=== PATIENT | male | born 1935 | race Caucasian/White ===

== ENCOUNTER 2016-11-18 22:55 | Emergency (ER) | payer MEDICARE, OTHER ==
[2016-11-18] MEDS ORDERED: Aspirin Low Dose CHEW TAB* 81 MG PO ONE (23:34)
[2016-11-18] MEDS ORDERED: NS 0.9% 1000 ML* 1,000 ML IV ONE (23:34)
[2016-11-19] LABS: Albumin 3.8 g/dL (3.2-5.2); BUN/Creatinine Ratio 20.9 (8-20); Calcium 9.1 mg/dL (8.6-10.3); EGFR African American 69.1 (>60); EGFR Non-African American 53.7 (>60); Globulin 2.9 g/dL (2-4); Potassium 3.9 mmol/L (3.5-5.0); Total Bilirubin 0.8 mg/dL (0.2-1.0); Total Protein 6.7 g/dL (6.4-8.9)
[2016-11-19 00:02] LABS: Troponin I 0.02 ng/mL (<0.04)
[2016-11-19 00:06] LABS: Hematocrit 43 % (42-52); Hemoglobin 14.5 g/dl (14.0-18.0); Mean Corpuscular HGB Conc 34 g/dl (31-36); Mean Corpuscular Hemoglobin 32 pg (27-31); Mean Corpuscular Volume 94 fL (80-94); Mean Platelet Volume 8 um3 (7.4-10.4); Red Blood Count 4.53 10^6/ul (4.0-5.4); Red Cell Distribution Width 13 % (10.5-15)
[2016-11-19] MEDS ORDERED: Iodixanol* (CONTRAST) 320 MG/ML 100 ML SDV IV ONE (00:34)
[2016-11-19 03:25] VITALS: BP 109/69
--- NOTE | 2016-11-19 03:42 | ED ---
Justin Springer Benjamin, scribed for Carlos Maldonado MD on 11/18/16 at 2329 . HPI Chest Pain - HPI Summary HPI Summary: 81yo male c/o sudden onset left anterior chest pain 2 hours ago. Pt describes the pain as cramping. Pain is subsided now. Denies SOB, but reports nausea and diaphoresis. Hx of afib/aflutter, and AAA with repair surgery. Pt is on a blood thinner. No hx of SC. - History of Current Complaint Chief Complaint: EDChestPainROMI Time Seen by Provider: 11/18/16 23:19 Hx Obtained From: Patient, Family/Curriculum Advisory Teacher Onset/Duration: Started Hours Ago - 2 hours ago, Still Present Timing: Constant Initial Severity: Moderate Current Severity: Moderate Pain Intensity: 5 Pain Scale Used: 0-10 Numeric Chest Pain Location: Left Anterior Chest Pain Radiates: No Character: Other: - cramping Aggravating Factor(s): Nothing Alleviating Factor(s): Nothing Associated Signs and Symptoms: Positive: Diaphoresis, Nausea. Negative: Shortness of Breath - Allergy/Home Medications Allergies/Adverse Reactions: Allergies Allergy/AdvReac Type Severity Reaction Status Date / Time Sulfa Antibiotics Allergy Severe Nausea Verified 11/18/16 23:09 Amlodipine Allergy Edema Verified 11/18/16 23:09 Diclofenac Allergy Unknown Verified 11/18/16 23:09 Reaction Details Erythromycin Allergy Unknown Verified 11/18/16 23:09 Reaction Details PMH/Surg Hx/FS Hx/Imm Hx Endocrine/Hematology History: Reports: Hx Anticoagulant Therapy - pradaxa Denies: Hx Diabetes, Hx Thyroid Disease Cardiovascular History: Reports: Hx Aneurysm - aaa repair, Hx Pacemaker/ICD - 5/ 2015 Denies: Hx Congestive Heart Failure, Hx Hypertension Respiratory History: Denies: Hx Asthma, Hx Chronic Obstructive Pulmonary Disease (COPD) GI History: Denies: Hx Ulcer Musculoskeletal History: Reports: Hx Arthritis Sensory History: Reports: Hx Contacts or Glasses Opthamlomology History: Reports: Hx Contacts or Glasses Neurological History: Reports: Hx Transient Ischemic Attacks (TIA) - Surgical History Surgery Procedure, Year, and Place: CHEST SURGERY, lap latasha/appendectomy/ aortic aneursym repair. pacemaker june 2014 Hx Anesthesia Reactions: No Infectious Disease History: No Infectious Disease History: Denies: Hx Hepatitis, Hx Human Immunodeficiency Virus (HIV), Traveled Outside the [place] in Last 30 Days - Family History Known Family History: Positive: Other - AAA Negative: Cardiac Disease, Hypertension - Social History Occupation: Retired Lives: With Family Alcohol Use: Occasionally Substance Use Type: Reports: None Smoking Status (MU): Never Smoked Tobacco Review of Systems Positive: Skin Diaphoresis. Negative: Fever Eyes: Negative ENT: Negative Positive: Chest Pain Respiratory: Negative Positive: Nausea. Negative: Abdominal Pain Genitourinary: Negative Musculoskeletal: Negative Skin: Negative Neurological: Negative Psychological: Normal All Other Systems Reviewed And Are Negative: Yes Physical Exam - Summary Physical Exam Summary: The patient is well-nourished in no acute distress and in no acute pain. The skin is warm and dry and skin color reflects adequate perfusion. Pt is not diaphoretic. HEENT: The head is normocephalic and atraumatic. The pupils are equal and reactive. The conjunctivae are clear and without drainage. Nares are patent and without drainage. Mouth reveals moist mucous membranes and the throat is without erythema and exudate. The external ears are intact. The ear canals are patent and without drainage. The tympanic membranes are intact. Neck is supple with full range of motion and non-tender. There are no carotid bruits. There is no neck vein distension. Respiratory: Chest is non-tender. Lungs are clear to auscultation and breath sounds are symmetrical and equal. Cardiovascular: Hear is irregular rhythm and tachycardic. There is no murmur or rub auscultated. There is no peripheral edema and pulses are symmetrical and equal. Abdomen: The abdomen is soft and non-tender. There are normal bowel sounds heard in all four quadrants and there is no organomegaly palpated. Musculoskeletal: There is no back pain noted. Extremities are non-tender with full range of motion. There is good capillary refill. There is no peripheral edema or calf tenderness elicited. Neurological: Patient is alert and oriented to person, place and time. The patient has symmetrical motor strength in all four extremities. Cranial nerves are grossly intact. Deep tendon reflexes are symmetrical and equal in all four extremities. Psychiatric: The patient has an appropriate affec tbut exhibit slight anxiety. Triage Information Reviewed: Yes Vital Signs On Initial Exam: Initial Vitals BP 124/86 11/18/16 23:05 Vital Signs Reviewed: Yes - Laurent Coma Scale Coma Scale Total: 15 Diagnostics - Vital Signs Vital Signs Temp Pulse Resp BP Pulse Ox 11/18/16 23:09 97.2 F 103 16 124/86 94 11/18/16 23:06 75 12 94 11/18/16 23:05 124/86 - Laboratory Lab Results: Lab Results 11/18/16 11/18/16 11/18/16 Range/Units 23:30 23:30 23:30 WBC 7.0 (3.5-10.8) 10^3/ul RBC 4.53 (4.0-5.4) 10^6/ul Hgb 14.5 (14.0-18.0) g/dl Hct 43 (42-52) % MCV 94 (80-94) fL MCH 32 H (27-31) pg MCHC 34 (31-36) g/dl RDW 13 (10.5-15) % Plt Count 164 (150-450) 10^3/ul MPV 8 (7.4-10.4) um3 Neut % (Auto) 77.4 (38-83) % Lymph % (Auto) 11.7 L (25-47) % [place] % (Auto) 6.8 (1-9) % Eos % (Auto) 3.6 (0-6) % Baso % (Auto) 0.5 (0-2) % Absolute Neuts (auto) 5.4 (1.5-7.7) 10^3/ul Absolute Lymphs (auto) 0.8 L (1.0-4.8) 10^3/ul Absolute Monos (auto) 0.5 (0-0.8) 10^3/ul Absolute Eos (auto) 0.3 (0-0.6) 10^3/ul Absolute Basos (auto) 0 (0-0.2) 10^3/ul Absolute Nucleated RBC 0 10^3/ul Nucleated RBC % 0 INR (Anticoag Therapy) 1.21 H (0.89-1.11) APTT 57.5 H (26.0-36.3) seconds Sodium (133-145) mmol/L Potassium (3.5-5.0) mmol/L Chloride (101-111) mmol/L Carbon Dioxide (22-32) mmol/L Anion Gap (2-11) mmol/L BUN (6-24) mg/dL Creatinine (0.67-1.17) mg/dL Est GFR ( Amer) (>60) Est GFR (Non-Af Amer) (>60) BUN/Creatinine Ratio (8-20) Glucose (70-100) mg/dL Lactic Acid (0.5-2.0) mmol/L Calcium (8.6-10.3) mg/dL Total Bilirubin (0.2-1.0) mg/dL AST (13-39) U/L ALT (7-52) U/L Alkaline Phosphatase (34-104) U/L Troponin I (<0.04) ng/mL B-Natriuretic Peptide 427 H ( - 100) pg/mL Total Protein (6.4-8.9) g/dL Albumin (3.2-5.2) g/dL Globulin (2-4) g/dL Albumin/Globulin Ratio (1-3) 11/18/16 11/18/16 11/19/16 Range/Units 23:30 23:30 02:34 WBC (3.5-10.8) 10^3/ul RBC (4.0-5.4) 10^6/ul Hgb (14.0-18.0) g/dl Hct (42-52) % MCV (80-94) fL MCH (27-31) pg MCHC (31-36) g/dl RDW (10.5-15) % Plt Count (150-450) 10^3/ul MPV (7.4-10.4) um3 Neut % (Auto) (38-83) % Lymph % (Auto) (25-47) % [place] % (Auto) (1-9) % Eos % (Auto) (0-6) % Baso % (Auto) (0-2) % Absolute Neuts (auto) (1.5-7.7) 10^3/ul Absolute Lymphs (auto) (1.0-4.8) 10^3/ul Absolute Monos (auto) (0-0.8) 10^3/ul Absolute Eos (auto) (0-0.6) 10^3/ul Absolute Basos (auto) (0-0.2) 10^3/ul Absolute Nucleated RBC 10^3/ul Nucleated RBC % INR (Anticoag Therapy) (0.89-1.11) APTT (26.0-36.3) seconds Sodium 135 (133-145) mmol/L Potassium 3.9 (3.5-5.0) mmol/L Chloride 106 (101-111) mmol/L Carbon Dioxide 25 (22-32) mmol/L Anion Gap 4 (2-11) mmol/L BUN 27 H (6-24) mg/dL Creatinine 1.29 H (0.67-1.17) mg/dL Est GFR ( Amer) 69.1 (>60) Est GFR (Non-Af Amer) 53.7 (>60) BUN/Creatinine Ratio 20.9 H (8-20) Glucose 116 H (70-100) mg/dL Lactic Acid 0.8 (0.5-2.0) mmol/L Calcium 9.1 (8.6-10.3) mg/dL Total Bilirubin 0.80 (0.2-1.0) mg/dL AST 18 (13-39) U/L ALT 14 (7-52) U/L Alkaline Phosphatase 63 (34-104) U/L Troponin I 0.02 0.02 (<0.04) ng/mL B-Natriuretic Peptide ( - 100) pg/mL Total Protein 6.7 (6.4-8.9) g/dL Albumin 3.8 (3.2-5.2) g/dL Globulin 2.9 (2-4) g/dL Albumin/Globulin Ratio 1.3 (1-3) Result Diagrams: 11/18/16 23:30 11/18/16 23:30 Lab Statement: Any lab studies that have been ordered have been reviewed, and results considered in the medical decision making process. - CT CTA Chest CT Interpretation: No Acute Changes - No aortic dissection or aneurysm. Diverticulosis without acute diverticulitis. CT Interpretation Completed By: Radiologist - ED physician has reviewed the radiology report and agrees with the finding. - EKG 2303 Cardiac Rate: Tachycardia - 96bpm EKG Rhythm: Atrial Fibrillation - atrial fibrillation/flutter. ST Segment: Normal EKG Interpretation: No ST elevation 0223 Cardiac Rate: NL - 59bpm EKG Rhythm: Atrial Fibrillation - atrial fibrillation/flutter. EKG Interpretation: T wave changes in III, AVF different from EKG on 11/18/16 @ 2303. Re-Evaluation - Re-Evaluation First Eval Re-Evaluation Time: 02:25 Comment: Reviewed labs and imaging results to the pt. Will put in add in orders of repeat EKG and troponin. Second Eval Re-Evaluation Time: 03:24 Comment: Reviewed labs and imaging results to the pt. Recommended F/U with DR. Arango and to consider outpatient stress test. Chest Pain Course/Dx - Course Course Of Treatment: Reviewed pt's medication list and allergies. Blood pressure noted. - Chest Pain Differential Diagnosis/HQI/PQRI: Acute SC, ACS, Angina, Aortic Aneurysm, Lower Respiratory Infection, Pulmonary Edema, Pulmonary Embolism - Diagnoses Provider Diagnoses: chest pain Discharge - Discharge Plan Condition: Stable Disposition: HOME Patient Education Materials: Chest Pain (ED) Referrals: Margaux Barrientos MD [Primary Care Provider] - Sanjuana Arango MD [Medical Doctor] - Additional Instructions: CONSIDER OUTPATIENT STRESS TEST. The documentation as recorded by the Justin malin Benjamin accurately reflects the service I personally performed and the decisions made by me, Carlos Maldonado MD.
--- NOTE | 2016-11-19 08:08 | RAD ---
INDICATION: Chest pain. Thoracic aneurysm. Evaluate for dissection. COMPARISON: CTA chest February 05, 2015 TECHNIQUE: Axial source images were obtained from the thoracic inlet to the symphysis pubis utilizing CT angiographic technique following the intravenous demonstration of 100 mL of Visipaque 320 coronal and sagittal reconstructed images were acquired. CHEST FINDINGS: Neck/thyroid: The visualized neck to include the thyroid appear normal. Chest wall: There are no acute abnormalities of the bony thorax or chest wall. There is median sternotomy. There is osteopenia with kyphosis. There are endplate irregularities. There is a mild loss in the vertical dimension of multiple vertebrae There is no supraclavicular, infraclavicular, or axillary lymphadenopathy. Lungs : There are no pulmonary parenchymal masses or infiltrates. There is hyperinflation The pulmonary interstitium appears normal. There are no endobronchial lesions. Cardiomediastinal structures: The heart is normal in size. There is no pericardial effusion. There is pacemaker artifact. 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 There is uncoiling and elongation of the aorta. There is no evidence of dissection. There is no CT evidence of acute pulmonary embolic disease. There is no mediastinal or hilar adenopathy. The esophagus appears normal. Pleura : There are no pleural-based masses or effusions. ABDOMINAL/PELVIC FINDINGS: Liver: The liver is normal in size. There are no masses. There is no ductal dilatation. Gallbladder: Cholecystectomy. Spleen: The spleen is normal in size. The early arterial phase enhancement pattern is normal. Pancreas: There is no evidence of pancreatic mass or ductal dilatation. Adrenal glands: There is no evidence of adrenal mass. Kidneys: The kidneys are normal in size and position. There are prompt nephrograms and there is prompt excretion bilaterally. There are no renal parenchymal masses. There is no evidence of nephrolithiasis. Adenopathy: There is no evidence of adenopathy by size criteria. Fluid collections: There are no free or localized fluid collections. Vessels: There is no evidence of abdominal aortic aneurysm or dissection. The aorta is mildly redundant. The visceral branches arise satisfactorily. The iliac vessels are mildly ectatic and tortuous GI tract: There is limited evaluation GI tract on noncontrast imaging. The upper GI tract is remarkable for a moderate-sized hiatal hernia.. There are extensive diverticula of the sigmoid colon. There are no CT findings of acute diverticulitis. Pelvic organs: The prostate and seminal vesicles appear normal Bladder: There are no bladder masses. Abdominal and pelvic soft tissues: The extraperitoneal abdominal and pelvic soft tissues appear normal.. Osseous structures: There are no acute osseous findings. There is multilevel spondylitic change. There is some mild loss in the vertical dimension of multiple vertebrae at the thoracolumbar junction. IMPRESSION: 1. No CT evidence of aortic aneurysm or dissection. 2. No CT evidence of acute pulmonary embolic disease. 3. Moderate-sized hiatal hernia. 4. Diverticulosis of the sigmoid colon. 5. Multiple mild compression deformities, unchanged.
== END 2016-11-19 03:40 | disposition home or self-care (01) ==
LOC: ED 22:55
DX: R07.9 Chest pain, unspecified (principal); R11.0 Nausea
CPT/HCPCS: 36415; 71275; 74174; 80053; 83605; 83880; 84484; 85025; 85610; 85730; 93005; 99284; A9270-GY; Q9967

== ENCOUNTER 2017-05-13 18:38 | Emergency (ER) | payer MEDICARE ==
[2017-05-13] MEDS ORDERED: NS 0.9% 1000 ML*IV.FLUID IV ONE (18:51)
--- NOTE | 2017-05-13 19:30 | RAD ---
Indication: Fever, hypotension, cough. Nausea. Comparison: November 19, 2016 CT. July 26, 2014 chest radiograph. Technique: Upright AP 1902 hours Report: Mild linear consolidation at the LEFT costophrenic angle most consistent with atelectasis. Mild prominence of the interstitial markings without change. Grossly clear pleural spaces. Negative for pneumothorax. RIGHT atrial and RIGHT ventricular level pacemaker leads. Median sternotomy wires and mediastinal vascular clips. Upper normal heart size. Unremarkable central pulmonary vasculature. Tortuous descending thoracic aorta without change. Gallbladder fossa level surgical clips. IMPRESSION: Stigmata of chronic obstructive pulmonary disease. Mild LEFT basilar subsegmental atelectasis. No compelling evidence for pulmonary edema.
[2017-05-13 19:47] LABS: INR 1.2 (0.77-1.02)
[2017-05-13 19:51] LABS: EGFR Non-African American 48.1 (>60)
[2017-05-13] MEDS ORDERED: Aspirin EC Low Dose* 81 MG TAB.EC PO ONE (20:30)
[2017-05-13] MEDS ORDERED: Dofetilide CAP* 250 MCG PO ONE (20:30)
[2017-05-13] MEDS ORDERED: Apixaban* 5 MG TAB PO ONE (20:47)
[2017-05-13 21:08] LABS: ABS Basophils 0 10^3/ul (0-0.2); ABS Eosinophils 0 10^3/ul (0-0.6); ABS Lymphocytes 0.3 10^3/ul (1.0-4.8); ABS Monocytes 0.5 10^3/ul (0-0.8); ABS Neutrophils 3.3 10^3/ul (1.5-7.7); ABS Nucleated RBC 0 10^3/ul; Eosinophil % 0.4 % (0-6); Hematocrit 46 % (42-52); Hemoglobin 15.6 g/dl (14.0-18.0); Lymphocyte % 8.4 % (25-47); Mean Corpuscular HGB Conc 34 g/dl (31-36); Mean Corpuscular Hemoglobin 32 pg (27-31); Mean Corpuscular Volume 93 fL (80-94); Mean Platelet Volume 8 um3 (7.4-10.4); Nucleated Red Blood Cells % 0.2; Platelet Count 137 10^3/ul (150-450); Red Blood Count 4.91 10^6/ul (4.0-5.4); Red Cell Distribution Width 13 % (10.5-15); White Blood Count 4.1 10^3/ul (3.5-10.8)
--- NOTE | 2017-05-13 21:53 | CONSULT ---
Subjective Date of Service: 05/13/17 Interval History: This is a pleasant 81 year old male patient that reports having symptoms of cough and URI since Tuesday of this week. Patient went to see PCP yesterday and was placed on antibiotics and sent home. Today he was feeling markedly worse with mild nausea, and subjective fever of 102F. Called the PCP office and was instructed to come to ER for evaluation. He became hypotensive, but did not have compensatory tachycardia. He was given 1 liter fluid bolus in the ED, is currently afebrile and has tested positive for influenza B. Patient currently complaining of general malaise, but overall feeling better after fluids. BP is now 102/74, HR 84, temp 99.7. Review of Systems - Measurements Intake and Output: Intake and Output Last 24 Hours 05/11/17 05/12/17 05/13/17 05/14/17 06:59 06:59 06:59 06:59 Intake Total 1000 Balance 1000 Weight 185 lb Intake: IV Fluids 1000 - Review of Systems Constitutional Symptoms: Negative: Weight Gain, Weight Loss, Weakness, Fatigue, Fever, Night Sweats, Unexplained Falls, Other Dermatology: Negative: Normal, Rash, Skin Lesions, Cancer, Skin Lumps, Other HEENT: Negative: Normal, Change in Hearing, Vertigo, Dental Problems, Tinnitus, Sinus Problem, Other Eyes: Negative: Normal, Change in Vision, Double Vision, Eye Pain, Glaucoma, Cataract, Contacts or Glasses, Other Thyroid: Negative: Normal, Goiter, Thyroid Nodule, Cold Intolerance, Heat Intolerance , Sweatiness, Tremor, Frequent Defecation, Constipation, Palpitations, Primary Hypothyroidism, Primary Hyperthyroidism, Weight Loss, Weight Gain, Change in Skin/Hair, Change in Menstruation, Radiation Exposure, Other Pulmonary: Positive: Cough Negative: Normal, Sputum, Hemoptysis, Wheezing, Respiratory Distress, Shortness of Breath, COPD, Asthma, Exercise Intolerance, Home Oxygen, Other Cardiology: Negative: Normal, Chest Pain, Shortness of Breath, Palpitations, Swelling of Ankles, Peripheral Vascular Dis, Edema, Faintness, Syncope, Claudication, Proximal NocturnalDyspnea, Orthopnoea, Other Gastroenterology: Negative: Normal, Abdominal Pain, Nausea, Vomiting, Anorexia, Indigestion, Difficulty Swallowing, Heartburn, Constipation, Diarrhea, Blood in Stools, Change in Bowel Habits, Haematemesis, Melena, Other Genital - Urinary: Negative: Normal, Dysuria, Hematuria, Polyuria, Nocturia, Other Genitourinary - Male: Negative: Prostatism, Erectile Dysfunction, Family Hx of Prostate Cancer, Other Musculoskeletal: Positive: Joint Pain Endocrinology: Negative: Normal, Thyroid Problems, Adrenal Problems, Gonadal Problems, Family Hx Endocrine Disorders, Obesity, Diabetes Mellitus, Hyperglycemia, Hx Hypoglycemia, Diabetic Foot Ulcers, Calluses, Hirsutism, Menstral Abnormalities , Polydipsia, Polyuria, Gonadal Problems, Gynecomastia, Pituitary disease, Other Hematologic/Lymphatic: Negative: Anemia, Easy Brusing, Hx Leukemia, Hx Lymphoma, Use of Anticoagulant, Use of Antiplatelet Drugs, Other Neurology: Negative: Normal, Headache, Migraines, Change in Vision, Diplopia, Dizziness , Change in Balancing, Change in Coordination, Change in Memory, Change in Speech, Change in Sphincter Function, Change in Walking, Numbness\Paresthesiae, Unexplained Weakness, Hx of Stroke\TIA, Hx of Seizures, Other Psychiatry: Negative: Normal, Depression, Anxiety, Depressed Mood, Adhedonia, Sexual Dysfunction, Weight Change, Guilt Feelings, Tearfulness, Unusual Fatigue, Unusual Anxiety, Suicidal Ideation, Hypomania, Eating Disorders, Other Allergic/Immunologic: Negative: Hx Anaphylaxis, Hx Angioedema, Hx Environmental, Hx Seasonal, Athsma, Hx HIV, Immunocompromise, Swollen Glands LymphNodes, Other Objective Vital Signs - 8 hr 05/13/17 05/13/17 05/13/17 18:45 19:40 19:42 Temperature 98.7 F Pulse Rate 78 65 Respiratory 20 Rate Blood Pressure 84/57 87/41 (mmHg) O2 Sat by Pulse 92 94 Oximetry 05/13/17 05/13/17 05/13/17 19:43 20:00 20:30 Temperature Pulse Rate 59 81 86 Respiratory Rate Blood Pressure 94/60 96/65 102/74 (mmHg) O2 Sat by Pulse 94 96 98 Oximetry 05/13/17 21:00 Temperature Pulse Rate 81 Respiratory Rate Blood Pressure 101/75 (mmHg) O2 Sat by Pulse 94 Oximetry Oxygen Devices in Use Now: None Appearance: Alert, well appearing, NAD Eyes: PERRLA Ears/Nose/Mouth/Throat: NL Teeth, Lips, Gums, Mucous Membranes Moist Neck: Trachea Midline Respiratory: Symmetrical Chest Expansion and Respiratory Effort, Clear to Auscultation Cardiovascular: No Edema, - - murmur, irregular, a flutter on tele at baseline Extremities: No Edema Neurological: Alert and Oriented x 3, NL Muscle Strength and Tone Nutrition: Taking PO's Result Diagrams: 05/13/17 19:12 05/13/17 19:12 Microbiology and Other Data: Microbiology 05/13/17 19:50 Influenza Types A,B Antigen (CHLOE) - Final Nasopharyngeal Specimen received for Influenza A/B Molecular testing Diagnostic Imaging: Patient Name: KELY SOTO JR Medical Record#: [id number] Ordering Physician: Sherry Roberts MD Acct.#: [id number] : 1935 Age: 81 Sex: M Location: EMERGENCY DEPARTMENT Exam Date: 05/13/171850 ADM Status: REG ER Order Information: CHEST AP PORTABLE Accession Number: [id number] CPT: 58028 Indication: Fever, hypotension, cough. Nausea. Comparison: November 19, 2016 CT. July 26, 2014 chest radiograph. Technique: Upright AP 1902 hours Report: Mild linear consolidation at the LEFT costophrenic angle most consistent with atelectasis. Mild prominence of the interstitial markings without change. Grossly clear pleural spaces. Negative for pneumothorax. RIGHT atrial and RIGHT ventricular level pacemaker leads. Median sternotomy wires and mediastinal vascular clips. Upper normal heart size. Unremarkable central pulmonary vasculature. Tortuous descending thoracic aorta without change. Gallbladder fossa level surgical clips. IMPRESSION: Stigmata of chronic obstructive pulmonary disease. Mild LEFT basilar subsegmental atelectasis. No compelling evidence for pulmonary edema. <Electronically signed by Heath Horan MD in [place]> 05/13/171926 Dictated By: Heath Horan MD Dictated Date/Time: 05/13/171926 Transcribed Date/Time: 05/13/171920 Copy to: Assessment/Plan - Billing Impression: 1. Influenza B positive 2. Controlled a flutter 2/2 valvular disease 3. Hypotension 2/2 dehydration, s/p fluid resuscitation 4. CKD, at baseline 5. Mildly elevated BNP, at baseline, not in failure Plan and Recommendations: Labs and chest xray reviewed. Patient is to have valve replacement at [facility] in May. Explained to patient that this should not preclude him from continuing with surgery. Patient is stable and wishes to be discharged to home, offered Obs admission which patient and sig other declined. Explained the following plan for home for which patient and sig other verbalized their understanding: - Start tamiflu, first dose now, with prophylaxis for sig other - Continue tikosyn, apixiban, asa - Hold metoprolol, check BP at home next 24 hours, restart when SBP is consistently >120 - Take tylenol 650mg Q6h to control fever and keep below 101 - Push oral fluids, rest, change positions slowly Status: Medically optimized for discharge to home. Patient told to return to ER if symptoms worsen and to follow up with PCP in a week. Coordinated with Dr. Yusuf and Dr. Roberts.
[2017-05-13] MEDS ORDERED: Oseltamivir CAP* 30 MG CAP PO ONE (22:20)
[2017-05-13 23:53] VITALS: BP 119/92
--- NOTE | 2017-05-14 00:56 | ED ---
Isela Springer Jason, scribed for Sherry Roberts MD on 05/13/17 at 2107 . HPI Febrile Illness - HPI Summary HPI Summary: This patient is a 81 year old M presenting to [facility] accompanied by his female SO with a chief complaint of fever, cough and pain in his chest with coughing for 3 days. The patient states that he has had high fever for three days and when his temp was 102 at home today he contacted his PCP today who advised him to come to ED. He includes he took tylenol at 1400 today and started antibiotics 1 day ago, specifically amoxicillin and clavulanate potassium 500- 125 MG 1 tablet twice a day prescribed by his PCP for this "chest cold", and he has had 2 doses of the Augmentin. He has also received a flu shot this year. He also has a heart surgery planned in 1 month for a leaking aortic valve, at the [facility]. Symptoms aggravated by nothing. Symptoms alleviated by nothing. Patient reports SOB, cough, nausea, and burning chest pain when coughing. Pt is s/p thoracic aortic aneurysm repair. Pt takes eliquis, ASA and Tikosyn for aflutter. Pt was seen at triage for BP 84/57. Pt was afebrile after tylenol upon presentation to the ED. - History of Current Complaint Chief Complaint: EDFever Time Seen by Provider: 05/13/17 18:51 Hx Obtained From: Patient, Family/Digital Asset Specialist - SO, female Onset/Duration: Started Days Ago - 3 days ago Timing: Constant Temperature: 102 F - at home, took tylenol Pain Intensity: 0 Pain Scale Used: 0-10 Numeric Aggravating Factors: Nothing Alleviating Factors: Nothing Associated Signs and Symptoms: Cough, Nausea, SOB, Other: - fever, SOB, cough, nausea, and Chest pain when coughing - Allergy/Home Medications Allergies/Adverse Reactions: Allergies Allergy/AdvReac Type Severity Reaction Status Date / Time Sulfa (Sulfonamide Allergy GI Upset Verified 05/13/17 18:44 Antibiotics) Home Medications: Home Medications Acetaminophen TAB* [Tylenol TAB*] 325 mg PO Q4H PRN 05/13/17 [History Confirmed 05/13/17] Amoxicillin/Clavulanate TAB* [Augmentin TAB 875*] 875 mg PO BID 05/13/17 [ History Confirmed 05/13/17] Apixaban* [Eliquis*] 5 mg PO DAILY 05/13/17 [History Confirmed 05/13/17] PMH/Surg Hx/FS Hx/Imm Hx Previously Healthy: No Endocrine/Hematology History: Reports: Hx Anticoagulant Therapy - Eliquis Denies: Hx Diabetes, Hx Thyroid Disease Cardiovascular History: Reports: Hx Aneurysm - thoracic aortic aneurysm repair, Hx Atrial Fibrillation, Hx Congestive Heart Failure, Hx Pacemaker/ICD - 06/2014 Denies: Hx Hypertension Respiratory History: Denies: Hx Asthma, Hx Chronic Obstructive Pulmonary Disease (COPD) GI History: Denies: Hx Ulcer History: Denies: Hx Renal Disease Musculoskeletal History: Reports: Hx Arthritis Sensory History: Reports: Hx Contacts or Glasses Opthamlomology History: Reports: Hx Contacts or Glasses Neurological History: Reports: Hx Transient Ischemic Attacks (TIA) - Surgical History Surgery Procedure, Year, and Place: lap latasha/appendectomy/aortic aneursym repair. pacemaker june 2014 Hx Anesthesia Reactions: No - Immunization History Date of Influenza Vaccine: Fall 2016 Infectious Disease History: No Infectious Disease History: Denies: Hx Hepatitis, Hx Human Immunodeficiency Virus (HIV), Traveled Outside the [place] in Last 30 Days - Family History Known Family History: Positive: Other - AAA Negative: Cardiac Disease, Hypertension - Social History Lives: With Family Alcohol Use: Daily Substance Use Type: Reports: None Smoking Status (MU): Never Smoked Tobacco Review of Systems Positive: Fever Positive: Chest Pain - when coughing Positive: Shortness Of Breath, Cough Positive: Nausea Musculoskeletal: Negative Skin: Negative Neurological: Negative Psychological: Normal All Other Systems Reviewed And Are Negative: Yes Physical Exam - Summary Physical Exam Summary: Appearance:mildly Ill-appearing, minimal pain distress, Well-nourished, hypotensive at triage Skin: Warm, color reflects adequate perfusion Head: Normal Head/Face inspection Eyes: Conjunctiva clear ENT: Normal inspection Neck: Supple, no nodes, no JVD. Respiratory: Lungs clear, Decreased breath sounds throughout, no respiratory distress Cardio: irreg HR, II/ systolic murmur, pulses normal, brisk capillary refill Abdomen: soft, nontender Bowel sounds: present Musculoskeletal: Strength Intact/ ROM intact. No calf tenderness. No edema. Psychological: Normal Triage Information Reviewed: Yes Vital Signs On Initial Exam: Initial Vitals Temp Pulse Resp BP Pulse Ox 98.7 F 78 20 84/57 92 05/13/17 18:45 05/13/17 18:45 05/13/17 18:45 05/13/17 18:45 05/13/17 18:45 Vital Signs Reviewed: Yes Diagnostics - Vital Signs Vital Signs Temp Pulse Resp BP Pulse Ox 05/13/17 19:43 59 94/60 94 05/13/17 19:42 65 94 05/13/17 19:40 87/41 05/13/17 18:45 98.7 F 78 20 84/57 92 - Laboratory Lab Results: Lab Results 05/13/17 05/13/17 05/13/17 Range/Units 19:12 19:12 19:12 INR (Anticoag Therapy) 1.20 H (0.77-1.02) APTT 41.4 H (26.0-36.3) seconds Sodium 131 L (133-145) mmol/L Potassium 4.1 (3.5-5.0) mmol/L Chloride 102 (101-111) mmol/L Carbon Dioxide 22 (22-32) mmol/L Anion Gap 7 (2-11) mmol/L BUN 28 H (6-24) mg/dL Creatinine 1.42 H (0.67-1.17) mg/dL Est GFR ( Amer) 61.8 (>60) Est GFR (Non-Af Amer) 48.1 (>60) BUN/Creatinine Ratio 19.7 (8-20) Glucose 109 H (70-100) mg/dL Lactic Acid (0.5-2.0) mmol/L Calcium 9.0 (8.6-10.3) mg/dL Total Bilirubin 0.50 (0.2-1.0) mg/dL AST 25 (13-39) U/L ALT 19 (7-52) U/L Alkaline Phosphatase 78 (34-104) U/L Total Creatine Kinase 74 (10-223) U/L Troponin I 0.03 (<0.04) ng/mL C-Reactive Protein 42.49 H (< 5.00) mg/L B-Natriuretic Peptide 600 H ( - 100) pg/mL Total Protein 6.8 (6.4-8.9) g/dL Albumin 3.7 (3.2-5.2) g/dL Globulin 3.1 (2-4) g/dL Albumin/Globulin Ratio 1.2 (1-3) Influenza A (Rapid) (Negative) Influenza B (Rapid) (Negative) 05/13/17 05/13/17 Range/Units 19:12 19:56 INR (Anticoag Therapy) (0.77-1.02) APTT (26.0-36.3) seconds Sodium (133-145) mmol/L Potassium (3.5-5.0) mmol/L Chloride (101-111) mmol/L Carbon Dioxide (22-32) mmol/L Anion Gap (2-11) mmol/L BUN (6-24) mg/dL Creatinine (0.67-1.17) mg/dL Est GFR ( Amer) (>60) Est GFR (Non-Af Amer) (>60) BUN/Creatinine Ratio (8-20) Glucose (70-100) mg/dL Lactic Acid 0.9 (0.5-2.0) mmol/L Calcium (8.6-10.3) mg/dL Total Bilirubin (0.2-1.0) mg/dL AST (13-39) U/L ALT (7-52) U/L Alkaline Phosphatase (34-104) U/L Total Creatine Kinase (10-223) U/L Troponin I (<0.04) ng/mL C-Reactive Protein (< 5.00) mg/L B-Natriuretic Peptide ( - 100) pg/mL Total Protein (6.4-8.9) g/dL Albumin (3.2-5.2) g/dL Globulin (2-4) g/dL Albumin/Globulin Ratio (1-3) Influenza A (Rapid) Negative (Negative) Influenza B (Rapid) Positive A (Negative) Result Diagrams: 05/13/17 19:12 05/13/17 19:12 Lab Statement: Any lab studies that have been ordered have been reviewed, and results considered in the medical decision making process. - Radiology CXR Radiology Interpretation Completed By: Radiologist - CXR reveals, per radiologist, Stigmata of chronic obstructive pulmonary disease. Mild LEFT basilar subsegmental atelectasis. No compelling evidence for pulmonary edema. ED physician has reviewed this radiology report. - EKG 1859 Cardiac Rate: NL EKG Rhythm: Atrial Flutter - [address] Segment: Non-Specific Ectopy: None EKG Interpretation: Normal IVCT, Normal Qtc, negative axis -30 EKG Comparison: Other - cpompared with 11/19/16 he is now in A-flutter. Re-Evaluation - Re-Evaluation First Eval Re-Evaluation Time: 21:25 Change: Unchanged Comment: BP improved after fluids, no chest pain. Consult hospitalist for possible admission due to influenza B, hypotension vs early sepsis vs CHF, possible pneumonia vs atelectasis Course/Dx - Course Course Of Treatment: In the ED course the patient was given IV fluids, aspirin, Eliquis, and a Dofetilide CAP. Influenza B test result is positive, influenza A test result is negative. Allergies noted. At 2111, Dr. Roberts is discontinuing the administered sepsis fluids because of his elevated bnp of 600. At 2124 the patient's systolic blood pressure is 101 systolic and o2 sat is 94% with no CP. He is awaiting hospitalist evaluation. Assessment/Plan: Discussed results with patient. Patient had med consult by hospitalist and pt and SO decided for DC home with oral tamiflu, dose adjusted for his renal function. - Febrile Illness Differential Diagnoses: Bacteremia, Pneumonia, Sepsis, Other: - CHF, influenza - Diagnoses Provider Diagnoses: Influenza B, Atelectasis, Hypotension, Chronic kidney disease, Atrial flutter, CHF (congestive heart failure) - Provider Notifications Discussed Care Of Patient With: Phillip Yusuf - will consult for possible admission and eval of hypotension Time Discussed With Above Provider: 20:35 - Critical Care Time Critical Care Time: 30-74 min - 30 mins Discharge - Discharge Plan Condition: Stable Disposition: HOME Prescriptions: Oseltamivir CAP* [Tamiflu CAP*] 30 mg PO BID #10 cap Patient Education Materials: Influenza (ED) Referrals: Margaux Barrientos MD [Primary Care Provider] - 2 Days Additional Instructions: You are swab positive for influenza B. We gave your first dose of the tamiflu, adjusted for your kidney function, of 30mg in the ER. We gave you a copy of your labs and xray report. Bring these to Dr. Barrientos and be checked again on Tuesday. You should stop the Augmentin (antibiotic). Take the tamiflu twice a day for 5 days. You should also hold off on taking your metoprolol (blood pressure medication) until your blood pressure is above 120 systolic. You may continue your Tikosyn, Eliquis and aspirin. You should take tylenol 650mg every 6 hrs to keep your temperature less than 101 F, so that your heart rate doesn't increase due to fever. Drink lots of fluids. Return to the ER if you have any new or worsening symptoms. The documentation as recorded by the Isela malin Jason accurately reflects the service I personally performed and the decisions made by me, Sherry Roberts MD.
== END 2017-05-13 23:55 | disposition home or self-care (01) ==
LOC: ED 18:38
DX: J10.1 Influenza due to other identified influenza virus with other respiratory manifestations (principal); J98.11 Atelectasis; I95.9 Hypotension, unspecified; N18.9 Chronic kidney disease, unspecified; I48.92 Unspecified atrial flutter; I50.9 Heart failure, unspecified; Z79.01 Long term (current) use of anticoagulants; Z86.73 Personal history of transient ischemic attack (TIA), and cerebral infarction without residual deficits; Z79.82 Long term (current) use of aspirin; Z88.2 Allergy status to sulfonamides
CPT/HCPCS: 36415; 71045; 80053; 82550; 83605; 83880; 84484; 85025; 85610; 85652; 85730; 86140; 87040; 87502; 93005; 96360; 99284; A9270-GY

== ENCOUNTER 2019-03-29 06:36 | Observation (INO) | payer MEDICARE, OTHER ==
--- NOTE | 2019-03-15 09:03 | HP ---
HISTORY AND PHYSICAL: DATE OF ADMISSION/SURGERY: 03/29/19 DATE OF OFFICE VISIT: 03/14/19 SURGEON: Gale Duffy MD * (DICTATED BY BETO VIGIL) PROCEDURE: Left total knee arthroplasty. CHIEF COMPLAINT: Left knee pain. HISTORY OF PRESENT ILLNESS: Mr. Henry is an 83-year-old gentleman with end- stage osteoarthritis of the left knee. He has failed conservative treatment and elected to proceed with a left total knee arthroplasty. PAST MEDICAL HISTORY: 1. Sleep apnea. 2. AFib. 3. Artificial heart valve. 4. Hypertension. 5. Aortic aneurysm. 6. Aortic valve stenosis. PAST SURGICAL HISTORY: 1. Heart valve repair. 2. Appendectomy repair. 3. Thoracic aortic aneurysm x2. 4. Cholecystectomy. 5. Hernia repair. 6. Cataract removal. 7. Cardiac ablation. CURRENT MEDICATIONS: 1. Sotalol 80 mg 3 tabs a day. 2. Coumadin 5 mg a day. 3. Metoprolol 25 mg twice a day. 4. Aspirin 81 mg a day. 5. Tylenol as needed. 6. Viagra as needed. 7. Calcium with vitamin D. ALLERGIES: SULFA, NORVASC, AMIODARONE, AND LOSARTAN. FAMILY HISTORY: Cancer. SOCIAL HISTORY: He is an 83-year-old gentleman, lives with his spouse. He does not smoke. REVIEW OF SYSTEMS: A complete 14-point review of systems is reviewed with the patient. It is positive for some occasional palpitations. He denies a history of DVT, PE, hepatitis, HIV or anesthesia problems. PHYSICAL EXAMINATION GENERAL: He is well developed, well nourished, in no acute distress. VITAL SIGNS: He is 72 inches tall, weighs 175 pounds. His blood pressure is 118/70 and his heart rate is 81. HEENT: Normocephalic, atraumatic. NECK: Supple. No palpable lymph nodes. PULMONARY: The lungs are clear to auscultation bilaterally. CARDIO: Regular rate and rhythm. Strong S1, S2. ABDOMEN: Soft, nontender, nondistended. MUSCULOSKELETAL: Left lower extremity: The skin is intact. There are no open wounds or abrasions. Some tenderness along the medial and lateral joint line. There is a moderate effusion. Range of motion is 5 to 100 degrees of flexion with patellofemoral crepitus. He is able to dorsiflex and plantar flex. He has a 2+ dorsalis pedis pulse and intact sensation. NEUROLOGICAL: He is alert and oriented x3. ASSESSMENT AND PLAN: Mr. Henry is an 83-year-old gentleman with end-stage osteoarthritis of the left knee. He has failed conservative treatment and elected to proceed with a left total knee arthroplasty. The surgery is scheduled for 03/29/[address] Duffy discussed the risks and benefits of the surgery at today's visit and all of his questions were answered. He will follow up with Dr. Duffy 2 weeks after the surgery. No TXA will be used in this patient. BETO VIGIL [id number]/CPS #: [id number] MTDD
[~2019-03-29 06:36] MED LIST: Acetaminophen TAB* 325 MG PO ONE; Buffered Lidocaine 1% SYRIN* 1 ML/SYRINGE INTRADERM ONE; Famotidine IV* 10 MG/ML 2 ML (20 mg) IV ONE; Gabapentin CAP(*) 300 MG PO ONE; Lactated Ringers 1000 ML Bag* 1,000 ML IV SCH
[2019-03-29] MEDS ORDERED: Gabapentin CAP(*) 300 MG ONE (06:54)
[2019-03-29] MEDS ORDERED: ceFAZolin 2 GM PREMIX in ORs 2 GM/50 ML BAG ONE (06:55)
[2019-03-29] MEDS ORDERED: Famotidine IV* 10 MG/ML 2 ML (20 mg) ONE (06:55)
[2019-03-29] MEDS ORDERED: Acetaminophen TAB* 325 MG ONE (07:03)
[2019-03-29] MEDS ORDERED: KETAMINE HCL* 50 MG/ML 10 ML VIAL ONE (07:41)
[2019-03-29] MEDS ORDERED: Propofol* 10 MG/ML 20 ML BTL ONE ×2 (07:41→10:02)
[2019-03-29] MEDS ORDERED: Ondansetron INJ* 2 MG/ML VIAL ONE (07:41)
[2019-03-29] MEDS ORDERED: Midazolam* 1 MG/ML 10 ML VIAL (10 MG) ONE (07:41)
[2019-03-29] MEDS ORDERED: fentaNYL* 50 MCG/ML 2 ML VIAL (100 MCG VIAL) ONE ×2 (07:41→10:02)
[2019-03-29] MEDS ORDERED: Dexamethasone IV* 4 MG/ML 1 ML (4 MG) ONE (07:41)
[2019-03-29] MEDS ORDERED: Lidocaine 2% PF * 5 ML VIAL ONE ×2 (07:41→10:04)
[2019-03-29] MEDS ORDERED: ROPIVACAINE 5 MG/ML 30 ML BTL (0.5%) ONE ×2 (07:41→10:12)
[2019-03-29 07:55] LABS: Activated Partial Thrombo Time 35.4 seconds (26.0-38.0); INR 1.17 (0.82-1.09)
[2019-03-29] MEDS ORDERED: Phenylephrine 10 MG/ML VIAL* 1 ML VIAL ONE (09:18)
[2019-03-29] MEDS ORDERED: Ketorolac INJ* 30 MG/ML 1 ML VIAL ONE (10:49)
[2019-03-29] MEDS ORDERED: Naloxone* 0.4 MG/ML 1 ML VIAL IV PRN (11:15)
[2019-03-29] MEDS ORDERED: fentaNYL* 50 MCG/ML 2 ML VIAL (100 MCG VIAL) IV PRN (11:20)
[2019-03-29] MEDS ORDERED: HYDROmorphone INJ1* 1 MG/ML SYRINGE IV PRN (11:20)
[2019-03-29] MEDS ORDERED: Morphine INJ* 2 MG/ML 1 ML SYRINGE (TWO MG - NEW SYRINGE VERSION) IV PRN (11:55)
[2019-03-29] MEDS ORDERED: Ondansetron INJ* 2 MG/ML VIAL IV PRN (11:55)
[2019-03-29] MEDS ORDERED: traMADol TAB* 50 MG PO PRN (11:55)
[2019-03-29] MEDS ORDERED: Magnesium Hydroxide LIQ* 30 ML UDC PO PRN (11:55)
[2019-03-29] MEDS ORDERED: oxyCODONE TAB* 5 MG TAB PO PRN (11:55)
[2019-03-29] MEDS ORDERED: Ondansetron ODT TAB* 4 MG PO PRN (11:55)
[2019-03-29] MEDS ORDERED: Ondansetron TAB* 4 MG PO PRN (11:55)
[2019-03-29] MEDS ORDERED: Polyethylene Glycol 3350* 17 GM PACKET PO PRN (11:55)
[2019-03-29] MEDS ORDERED: diPHENhydraMINE PO* 25 MG PO PRN (11:55)
[2019-03-29] MEDS ORDERED: diPHENhydraMINE LIQ* 12.5 MG/5 ML UDC PO PRN (11:55)
[2019-03-29] MEDS ORDERED: diPHENhydraMINE IV* 50 MG/ML 1 ml VIAL (BENADRYL) IV PRN (11:55)
[2019-03-29] MEDS ORDERED: Cyclobenzaprine TAB* 10 MG PO PRN (11:55)
--- NOTE | 2019-03-29 13:04 | PN ---
Progress Note - Progress Note Date of Service: 03/29/19 Note: resting comfortably in recovery, pain well controlled; able to DF/PF, 2+ DP pulse and intact sensation. Dressing c/d/i
[2019-03-29] MEDS: Lactated Ringers 1000 ML Bag* 1,000 ML IV SCH (14:10)
[2019-03-29] MEDS: oxyCODONE/Acetamin 5/325 MG* TAB PO PRN ×2 (15:30→21:08)
[2019-03-29] MEDS: Acetaminophen TAB* 325 MG PO SCH (15:32)
--- NOTE | 2019-03-29 16:12 | CONS ---
CC: Dr. Gale Duffy; Dr. Margaux Barrientos * CONSULTATION REPORT: DATE OF CONSULT: 03/29/19 REQUESTING PHYSICIAN IN CONSULTATION: Dr. Gale Duffy. ATTENDING PHYSICIAN: Dr. Ady Bob (dictated by BETO Adan). PRIMARY CARE PROVIDER: Dr. Margaux Barrientos. REASON FOR CONSULT: Co-medical management. HISTORY OF PRESENT ILLNESS: Mr. Henry is an 83-year-old male with a past medical history of AFib, on anticoagulation; hypertension; thoracic aortic aneurysm; AVR; sick sinus syndrome, status post pacemaker placement, who presented to [facility] today for an elective left total knee arthroplasty. The patient is seen postoperatively in his surgical room. He denies pain or paresthesias in the lower extremities. He does state he feels "loopy," dizzy and that he has some mild diplopia which has been resolving. He has no other complaints today. PAST MEDICAL HISTORY: 1. Paroxysmal atrial fibrillation, status post pacemaker placement, on anticoagulation. 2. Hypertension. 3. Thoracic aortic aneurysm, status post repair x2. 4. Aortic stenosis, status post AVR. 5. Obstructive sleep apnea, does not use CPAP. PAST SURGICAL HISTORY: Aortic valve replacement, appendectomy, thoracic aortic aneurysm repair x2, cholecystectomy, cardiac ablation, hernia repair, bilateral cataracts, permanent pacemaker placement. HOME MEDICATIONS: 1. Acetaminophen 500 mg p.o. b.i.d. p.r.n. 2. Aspirin 81 mg p.o. daily. 3. Calcium 600/D3 20 mcg 1 tab p.o. b.i.d. 4. Metoprolol succinate 25 mg p.o. b.i.d. 5. Sildenafil 100 mg p.o. once p.r.n. 6. Sotalol 240 mg p.o. at bedtime. 7. Warfarin 5 mg p.o. at bedtime. DRUG ALLERGIES: AMIODARONE, AMLODIPINE, LOSARTAN, SULFA - GI upset. FAMILY HISTORY: Father had brain cancer. Mother had lung cancer. No family history of heart disease, diabetes, or CVA. SOCIAL HISTORY: The patient denies current or former use of tobacco. He drinks 1 glass of wine per day. He does not use any illicit drugs. He is a retired [employer] administrator. He is . He has 2 biological children and 2 stepchildren. In the event that he is unable to make his own medical decisions, he has appointed his and healthcare proxy, Sweta Anderson, to be his surrogate decision maker. REVIEW OF SYSTEMS: A 14-point review of systems has been performed and all the pertinent positives and negatives are in the HPI, all other systems are negative. PHYSICAL EXAM: General: Mr. Henry is a well-developed, well-nourished, average overweight, elderly white male who is sitting up in bed. He appears to be in no acute distress. He is pleasant and cooperative. He appears somewhat younger than his stated age. HEENT: PERRL. EOMI. Peripheral visual quezada grossly intact. Sclerae are nonicteric without injection. Hearing is grossly intact. Oral mucous membranes are moist. There are no lesions. The pharynx is clear. The tongue is at midline. Palate elevates symmetrically. Cardiovascular: Regular rate and rhythm. S1, S2 present. There are no apparent murmurs, rubs, clicks, or gallops. There is no JVD or peripheral edema. Radial and pedal pulses are palpable. Pulmonary: Symmetrical chest expansion without use of accessory muscles. Lungs: Clear to auscultation bilaterally without rhonchi, wheeze, or rales. Abdomen: Bowel sounds in all quadrants. Soft, nontender to palpation. Musculoskeletal: The left knee is extended with clean, dry and intact dressing in place with cryo unit overlying dressing. Sensation intact distally, moves distal digits. Neuro: The patient is awake. He is alert and oriented x3. Cranial nerves II through XII are grossly intact. ASSESSMENT AND PLAN: Mr. Henry is an 83-year-old male with a past medical history of paroxysmal atrial fibrillation, on anticoagulation; hypertension; sick sinus syndrome, status post pacemaker placement; thoracic aortic aneurysm, status post repair x2 and aortic valve replacement, who presented to [facility] today for an elective left total knee arthroplasty. The patient will be admitted for: 1. Left total knee arthroplasty. Management per Ortho team. Weightbearing as tolerated. PT, pain management and bowel regimen. 2. Atrial fibrillation. Continue metoprolol b.i.d., sotalol at bedtime and warfarin at bedtime. The patient will be placed on Lovenox/Coumadin bridging. 3. Hypertension. Continue metoprolol. 4. Obstructive sleep apnea. The patient has a history of sleep apnea and reports that he sleeps on his side to combat this, but has not ever been prescribed a CPAP machine. 5. DVT prophylaxis: Per Ortho. Lovenox to Coumadin bridging. 6. Code status: Full code. TIME SPENT: Approximately 35 minutes was spent on this consultation, greater than half that time was spent [id number] with the patient and his obtaining history, performing physical, and reviewing the plan of care. The case has been discussed with my attending, Dr. Bob, who is in agreement with the plan of care. JERRY CHAMPION, BETO [id number]/CPS #: [id number] MARIE
[2019-03-29] MEDS ORDERED: Warfarin TAB(*) 6 MG PO ONE (17:00)
[2019-03-29] MEDS: ceFAZolin 1 GM ADVAN(*) 1 GM in NS 0.9% 50 ML* 50 ML IVPB SCH (17:23)
[2019-03-29] MEDS ORDERED: Sotalol TAB* 80 MG PO SCH (18:00)
--- NOTE | 2019-03-29 18:25 | OP ---
Operative Report - Blank - Operative Report Date of Operation: 03/29/19 Note: KELY SOTO JR 1935 Date of Surgery: 03/29/19 Gale Duffy MD Automatic Stacker: Bing PÉREZ did help throughout the procedure with preparation of the knee, wound retraction, manipulation of the knee, and wound closure. Anesthesiologist: Dr. Lee Anesthesia Type: Spinal Preoperative Diagnosis: Left severe degenerative osteoarthritis of the knee Postoperative Diagnosis: As above Procedure Performed: Left Total Knee Arthroplasty Tourniquet time: 44 minutes Complications: None Specimen: Bone and cartilage from the left knee joint sent to pathology. Hardware Used: Cemented Jensen [employer] Nephew total knee hardware was used - For the femur a size 7 left legion posterior stabilized femoral component, for the tibia a size 6 left terrance II tibial baseplate, for the insert a size 9mm 5-6 posterior stabilized articular polyethylene insert, and for the patella a size 38 3-peg all poly patella. Brief History/Indication: KELY SOTO JR was known in clinic and had a history of severe left knee pain and swelling. He failed conservative treatment with anti-inflammatories, pain pills, intra-articular injections and physical therapy. He elected to undergo left total knee arthroplasty due to continued pain and decreased quality of life. Radiographs showed severe end stage osteoarthritis of the knee with bone on bone contact. Informed consent was obtained from the patient. He understood the risks of surgery included but were not limited to: bleeding, infection, damage to nearby structures, intraoperative fracture, nerve palsy, failure of the hardware, early loosening, knee stiffness or loss of motion, anesthesia complications, stroke, heart attack , blood clot and . He wished to proceed. Intra-Operative Findings: Intraoperatively the patient was noted to have severe loss of cartilage in all 3 compartments of the knee. Description of the Procedure: KELY SOTO JR was identified in the preanesthesia unit. His left knee was marked as the correct operative side. Informed consent was signed and placed in the chart. The patient was taken to the operating room and placed under anesthesia without complication. A espinoza catheter was placed. A tourniquet was placed on the left thigh. The left lower extremity was prepped and draped in the usual sterile fashion. Preoperative time-out was made to correctly identify the patient, side and site. Appropriate intraoperative antibiotics were given within one hour of incision. Tourniquet was inflated. A midline incision was made and carried sharply down to the extensor mechanism. A new 10 blade was used to make a standard medial parapatellar arthrotomy. The patella was subluxed laterally. Electrocautery was used to dissect soft tissue off the superomedial tibia to the midsagittal plane. The knee was flexed up. The anterior horn of the lateral meniscus and the ACL were sharply incised. A drill was used to enter the distal femur. The intramedullary distal femoral cutting guide was pinned on the distal femur. The oscillating saw was used to make the distal femoral cut. The external rotation guide was pinned on the distal femur and the distal femur was sized to a size 7. The size 7 multi-cutting jig was pinned on the distal femur. The oscillating saw was used to make the appropriate 4 chamfer cuts. Next the PCL was completely released. The extramedullary tibial cutting guide was pinned on the proximal tibia and the oscillating saw was used to make the proximal tibial cut perpendicular to the mechanical axis of the tibia. The bone was carefully removed. The knee was brought out into full extension. The spacer block was placed and had excellent fit with the knee in full extension. The medial and lateral ligaments were well balanced. The flexion and extension gaps were well balanced. The knee was flexed up. Lamina microsoft bi consultant was placed both medially and laterally. Any remaining meniscus was removed with electrocautery. Curved osteotome was used to remove any posterior osteophytes. The tibial tray and drop narinder were placed and confirmed a satisfactory tibial cut. The size 7 left femoral trial was impacted onto the distal femur. This trial had excellent fit and stability. The box for the posterior stabilized implant was prepared using a box cut osteotome and a reamer. Next a tibial tray trial and 9 mm insert trial was placed. The knee was taken through a range of motion and had full extension to 130 degrees of flexion. Patellofemoral tracking was satisfactory. The patella was inverted and sized to a size 383. Three peg holes were drilled through the size 38 drill guide. The trial patella was placed and the knee was taken through a range of motion. There was satisfactory patellofemoral tracking. All trials were removed. The tibia was subluxed anteriorly and sized to a size 6. The proximal tibial was prepared with a size 6 keel punch. All bony cut surfaces were irrigated with sterile saline and dried. Final implants were cemented into place starting with the tibia, followed by the femur, and last the patella. A 9 mm insert trial was placed and the knee was brought into full extension. Tourniquet was turned down and the knee was copiously irrigated with sterile saline. Electrocautery was used to obtain meticulous hemostasis. Once the cement had fully cured, the insert trial was removed. Any excess cement was removed from around the hardware and capsule. Final insert chosen was a 9 mm posterior stabilized Terrance II articular insert size 5-6. Stability of the insert was checked and noted to be stable. The extensor mechanism was closed using number 1 vicryls. The rest of the incision was closed in a layered fashion using 0 and 2-0 vicryls. The skin was closed using 3-0 nylon suture. Sterile xeroform, 4x4s and webril were used to cover the incision. Servando wrap and cold pack were used to cover the dressings. The patients anesthesia was reversed without difficulty. He was taken to the PACU in stable condition. Intended weight-bearing will be as tolerated.
[2019-03-29] MEDS: Metoprolol Succinate XL TAB* 25 MG PO SCH (21:08)
[2019-03-29] MEDS: Magnesium Hydroxide LIQ* 30 ML UDC PO SCH (21:10)
[2019-03-29] MEDS: Docusate CAP* 100 MG PO SCH (21:18)
[2019-03-30] MEDS: Acetaminophen TAB* 325 MG PO SCH ×3 (00:15→14:58)
[2019-03-30] MEDS: Lactated Ringers 1000 ML Bag* 1,000 ML IV SCH (00:18)
[2019-03-30] MEDS: ceFAZolin 1 GM ADVAN(*) 1 GM in NS 0.9% 50 ML* 50 ML IVPB SCH ×2 (01:53→10:00)
[2019-03-30 06:11] LABS: Hematocrit 34 % (42-52); Hemoglobin 11.6 g/dL (14.0-18.0); Mean Platelet Volume 7.3 fL (7.4-10.4); Platelet Count 145 10^3/uL (150-450)
[2019-03-30 06:21] LABS: Calcium 8.4 mg/dL (8.6-10.3); Potassium 4.6 mmol/L (3.5-5.0)
[2019-03-30 06:27] LABS: BUN/Creatinine Ratio 25.8 (8-20); EGFR African American 67.7 (>60)
[2019-03-30] MEDS: Magnesium Hydroxide LIQ* 30 ML UDC PO SCH (08:04)
[2019-03-30] MEDS: oxyCODONE/Acetamin 5/325 MG* TAB PO PRN ×3 (08:05→15:55)
[2019-03-30] MEDS: Metoprolol Succinate XL TAB* 25 MG PO SCH (08:06)
[2019-03-30] MEDS: Docusate CAP* 100 MG PO SCH (08:06)
[2019-03-30] MEDS ORDERED: Aspirin 81 mg CHEW TAB* 81 MG TAB.CHEW PO SCH (09:00)
[2019-03-30] MEDS ORDERED: Vitamin THERAPEUTIC TAB PO SCH (09:00)
[2019-03-30] MEDS ORDERED: Enoxaparin(*) 40 MG/0.4 ML SYR SUBCUT SCH (12:00)
--- NOTE | 2019-03-30 13:56 | PN ---
Progress Note - Progress Note Date of Service: 03/30/19 SOAP: Subjective: [Pt was seen today sitting up in chair. He states that he is doing well. No complaints at this point. He states that his pain is manageable. He has done well with physical therapy. Denies any chest pain, SOB, nausea, vomiting. ] Objective: [General: pt is alert and oriented x3. MSK, LLE: dressing is c/d/i. Calf is soft and non tender. + df/pf. 2+ DP pulse. ] Vital Signs Temp 97.5 F 03/30/19 11:30 Pulse 65 03/30/19 11:30 Resp 20 03/30/19 12:09 BP 99/53 03/30/19 11:30 Pulse Ox 100 03/30/19 11:30 Intake & Output 03/29/19 03/30/19 03/30/19 18:59 06:59 18:59 Intake Total 58 3033 967 Output Total 295 250 Balance 58 2738 717 Weight 179 lb Intake: IV Fluids 1038 903 LR 1038 903 IVPB 58 55 64 ABX - CEFAZOLIN 58 55 64 Oral 1940 Output: Urine 250 [place] 295 Assessment: [POD 1 RTKA ] Plan: [PT Eliquis 2.5 mg bid x 30 days Percocet for pain relief Possible DC home today ]
--- NOTE | 2019-03-30 13:59 | DS ---
Orthopedic Discharge Summary - Discharge Summary Date of Admission:03/29/19 Date of Discharge: 03/30/2019 Date of Surgery: 03/29/2019 Attending Orthopedic Provider: Dr. Dfufy Pre-operative Diagnosis: Left knee osteoarthritis Operative Procedure: Left total knee arthroplasty Disposition of Patient:Home Home care vs Outpatient services: Home care Condition of Patient: Good Pain medication RX at discharge: Percocet 5/325 DVT prophylaxis RX at discharge: Eliquis 2.5 mg bid History: KELY SOTO JR is a 83 year old M with years of increasingly severe left kne pain. Patient has failed conservative management and has elected to undergo a left total knee replacement Hospital Course: KELY was admitted to [facility] on 03/29/19. Patient underwent a left total knee arthroplasty without complication followed by a brief recovery in PACU and transfer to the Short Stay Surgical Unit in stable condition. Our hospitalist service, physical therapy and occupational therapy also participated in this patients care. Post-op day 1: patient was alert and in no acute distress. Dressing was clean, dry and intact. Operative extremity dorsiflexion and plantarflexion intact, sensation intact to light touch distally, DP2+. Dressing was changed, incision was clean, dry and intact. Patient was deemed to be medically and orthopedically stable for discharge. Physical therapy goals were met. Home Medications Medication Instructions Recorded Confirmed Type Acetaminophen [Extra Strength 500 mg PO BID PRN 11/23/17 03/29/19 History Non-Aspirin] Aspirin 81 mg PO QAM 11/23/17 03/29/19 History Metoprolol Succinate 25 mg PO BID 11/23/17 03/29/19 History Sildenafil Citrate Viagra 100 mg PO ONCE PRN 11/23/17 03/29/19 History Warfarin TAB(*) [Coumadin TAB(*)] 5 mg PO QPM 11/23/17 03/29/19 History Calcium 600-D3 20Mcg(800 Unit) 1 tab PO BID 03/14/19 03/29/19 History Sotalol TAB* [Betapace 80 MG TAB*] 240 mg PO QPM 03/14/19 03/29/19 History Discharge Instructions following Orthopedic Surgery: Activity: * Weight Bearing as tolerated * Continue physical therapy and occupational therapy exercises as shown * If you have elected to have home physical therapy, continue therapy exercises at home. If you have elected outpatient physical therapy, please start therapy as an outpatient right away. Wound care: * OK to shower on post-op day 3, no bathing, swimming, or submerging wound. * Use gentle soap, pat dry. Cover with gauze, GENESIS wrap or tape. * If you elected to have a visiting home nurse, they will perform wound checks. Call Orthopedic office for: * Increased drainage * Redness * Increased pain * Fever Go to ER with shortness of breath or chest pain. Diet: * Regular diet * Increase fluids and fiber to prevent constipation. * Continue to use stool softeners, call office if no bowel motion within 48 hours. Medications See Home Medication List in your packet for medications that you should take after discharge. DVT Prophylaxis: Eliquis Dosin.5 mg, 1 tab every 12 hours x 30 days Pain Control: Percocet 5/325 mg 1 tab for moderate pain and 2 tabs for severe pain by mouth every 4 hours as needed. Maximum of 10 tabs per day. Hold for sedation , wean off as soon as pain allows Please note that Percocet contains Tylenol (acetaminophen). Maximum daily dose of Tylenol is 4000 mg from all sources. Antibiotics are required prior to any dental work. FOLLOW UP: Follow up with Dr. Quinteros] Within [10 - 14 days] days, call for appointment Please call our office with any questions or concerns ([phone])
[2019-03-30 15:47] LABS: INR 1.26 (0.82-1.09)
[2019-03-30 16:00] VITALS: BP 104/62
== END 2019-03-30 16:25 | disposition home or self-care (01) ==
LOC: OR 06:36 → SSU 11:55
PROVIDERS: ADMIT Orthopaedic Surgery Adult Reconstructive Orthopaedic Surgery; ATTEND Orthopaedic Surgery Adult Reconstructive Orthopaedic Surgery
DX: M17.12 Unilateral primary osteoarthritis, left knee (principal); G47.30 Sleep apnea, unspecified; I48.91 Unspecified atrial fibrillation; Z95.4 Presence of other heart-valve replacement; I10 Essential (primary) hypertension; I71.9 Aortic aneurysm of unspecified site, without rupture; I35.0 Nonrheumatic aortic (valve) stenosis; Z79.82 Long term (current) use of aspirin; Z79.899 Other long term (current) drug therapy; Z79.01 Long term (current) use of anticoagulants; Z87.19 Personal history of other diseases of the digestive system
CPT/HCPCS: 36415; 80048; 85014; 85018; 85049; 85610; 85730; 86850; 86900; 86901; 88305; 88311; 96361; 96365; 96366; 96372; A9270-GY; G0378; J0690; J1100; J1650; J1885; J2250; J2405; J2704; J2795; J3010

== ENCOUNTER 2021-04-02 07:54 | Observation (INO) ==
[~2021-04-02 07:54] MED LIST changes: -Acetaminophen TAB* 325 MG PO ONE; +Buffered Lidocaine 1% SYRIN 1 ml INTRADERM ONE; -Buffered Lidocaine 1% SYRIN* 1 ML/SYRINGE INTRADERM ONE; -Famotidine IV* 10 MG/ML 2 ML (20 mg) IV ONE; -Gabapentin CAP(*) 300 MG PO ONE; +Ketamine HCL 50 mg/ml 10 ml VIAL (500 MG) ONE; -Lactated Ringers 1000 ML Bag* 1,000 ML IV SCH; +Lactated Ringers 1000 ml BAG 1,000 ML IV SCH
[2021-04-02] MEDS ORDERED: ceFAZolin 2 GM in NS PREMIX 2 GM/100 ML BAG IVPB ONE (08:27)
[2021-04-02] MEDS ORDERED: Lidocaine 2% PF 5 ML VIAL ONE (08:28)
[2021-04-02] MEDS ORDERED: Propofol 10 MG/ML 20 ML BTL ONE ×2 (08:28→12:10)
[2021-04-02] MEDS ORDERED: HYDROmorphone 1 MG/1 ML SYRINGE IV PRN (09:12)
[2021-04-02] MEDS ORDERED: DiMENhydriNATE IV 50 mg/ml 1 ml VIAL IV PUSH PRN (09:12)
[2021-04-02] MEDS ORDERED: fentaNYL 100 mcg/2 ml 50 MCG/ML VIAL IV PRN (09:12)
[2021-04-02] MEDS ORDERED: Ondansetron 4 mg VIAL 2 MG/ML 2 ml VIAL IV PRN ×2 (09:12→11:51)
[2021-04-02] MEDS ORDERED: Acetaminophen IV 1 GM/100ML 100 ML IV PRN (09:12)
[2021-04-02] MEDS ORDERED: Naloxone 0.4 mg VIAL 0.4 mg/ml 1 ml VIAL IV PRN (09:12)
[2021-04-02] MEDS ORDERED: Lidocaine 1% MPF 5 ML VIAL ONE (09:30)
[2021-04-02] MEDS ORDERED: ROPIVACAINE 5 MG/ML 30 ML BTL (0.5%) ONE (09:30)
[2021-04-02] MEDS ORDERED: Midazolam 2 mg/2 ml VIAL 1 mg/ml 2 ml VIAL (2 mg) ONE (09:42)
[2021-04-02] MEDS ORDERED: Ropivacaine 5 MG/ML 20 ML VIAL 0.5% (100 MG) ONE (09:47)
[2021-04-02] MEDS ORDERED: DiMENhydriNATE IV 50 mg/ml 1 ml VIAL ONE (10:18)
[2021-04-02] MEDS ORDERED: Ondansetron ODT 4 mg TAB 4 MG TAB PO PRN (11:51)
[2021-04-02] MEDS ORDERED: diPHENhydraMINE 25 mg TAB PO PRN (11:51)
[2021-04-02] MEDS ORDERED: Morphine 2 MG/ML SYRINGE IV PRN (11:51)
[2021-04-02] MEDS ORDERED: Lactulose 30 ml UDC PO PRN (11:51)
[2021-04-02] MEDS ORDERED: Magnesium Hydroxide LIQ 30 ML UDC PO PRN (11:51)
[2021-04-02] MEDS ORDERED: diPHENhydraMINE IV 50 MG/ML 1 ml VIAL (BENADRYL) IV PRN (11:51)
[2021-04-02] MEDS ORDERED: ceFAZolin 1 GM ADVAN 1 GM in NS 0.9% 50 ML 50 ML IVPB SCH (12:00)
[2021-04-02] MEDS ORDERED: Phenylephrine 40 mcg/mL 10mL (400mcg) SYRINGE ONE (12:17)
[2021-04-02] MEDS ORDERED: Ondansetron 4 mg VIAL 2 MG/ML 2 ml VIAL ONE (12:55)
[2021-04-02] MEDS ORDERED: Acetaminophen IV 1 GM/100ML 100 ML IV ONE (12:56)
[2021-04-02] MEDS: Lactated Ringers 1000 ml BAG 1,000 ML IV SCH (15:20)
[2021-04-02] MEDS: ceFAZolin 1 GM ADVAN 1 GM in NS 0.9% 50 ML 50 ML IVPB SCH ×2 (20:08→23:47)
[2021-04-02] MEDS: Magnesium Hydroxide LIQ 30 ML UDC PO SCH (21:57)
[2021-04-03] MEDS: Lactated Ringers 1000 ml BAG 1,000 ML IV SCH (02:17)
[2021-04-03 06:12] LABS: Hematocrit 35 % (42-52); Hemoglobin 11.8 g/dL (14.0-18.0); Mean Platelet Volume 7.2 fL (7.4-10.4); Platelet Count 125 10^3/uL (150-450)
[2021-04-03 06:32] LABS: Calcium 8.6 mg/dL (8.6-10.3); Potassium 4.6 mmol/L (3.5-5.0); eGFR CKD-EPI 49.4 (>60)
[2021-04-03] MEDS ORDERED: Vitamin THERAPEUTIC TAB PO SCH (09:00)
[2021-04-03] MEDS ORDERED: Lactated Ringers 1000 ml BAG 1,000 ML IV ONE (09:15)
[2021-04-03] MEDS: Magnesium Hydroxide LIQ 30 ML UDC PO SCH (09:31)
[2021-04-03 12:31] VITALS: BP 97/56
[2021-04-03] MEDS: ceFAZolin 1 GM ADVAN 1 GM in NS 0.9% 50 ML 50 ML IVPB SCH (15:33)
== END 2021-04-03 16:45 | disposition home or self-care (01) ==
LOC: OR 07:54 → SSU 07:54 → EDSTATUS 10:30
PROVIDERS: ADMIT Orthopaedic Surgery Adult Reconstructive Orthopaedic Surgery; ATTEND Orthopaedic Surgery Adult Reconstructive Orthopaedic Surgery